=== PATIENT | female | born 2000 | race Two or more races ===

== ENCOUNTER 2023-05-23 19:44 | Emergency (ER) | payer MEDICAID, SELFPAY ==
[2023-05-23 19:47] VITALS: BP 127/81; PULSE 69; RESP 18; TEMP 36.8; O2SAT 100; BMI 29.2
--- NOTE | 2023-05-23 20:05 | EX.ED.GENINJ ---
HPI History of Present Illness Chief Complaint: Other, Pain/Inj PFSH PFSH Allergy/AdvReac Type Severity Reaction Status Date / Time No Known Allergies Allergy Verified 05/23/23 19:50 Social History Smoking Status: Never smoker EXAM Physical Exam Const Vital Signs: 05/23/23 19:47 05/23/23 19:55 Temperature 98.3 F Temperature Source Temporal Pulse Rate 69 Respiratory Rate 18 Respiratory Effort Normal Short of Breath Respiratory Pattern Normal Blood Pressure 127/81 H Blood Pressure Mean 96 Pulse Ox 100 Oxygen Delivery Method Room Air [facility] [place] Medical decision making narrative: HISTORY OF PRESENT ILLNESS: 23-year-old female here with concern for left rib pain. States she sneezed several weeks ago and immediate Pain in her left rib region. She notes swelling as well. She further states 2 weeks ago she moved to right upper extremity such a way that cause pain to her right lateral rib margin present and the pains been intermittent but worsening now it is worse with movement, sometimes with with a deep breath. She denies any chest pain. The patient denies recent surgery in the last 4 weeks or immobilization in the last 3 days, denies previous diagnosis of DVT or PE, hemoptysis, unilateral leg swelling or malignancy with treatment the last 6 months or palliative. No estrogen use noted. REVIEW OF SYSTEMS: Pertinent positives: Rib pain Pertinent negatives: Chest pain, shortness of breath PHYSICAL EXAM: Nursing triage notes reviewed, Vital signs reviewed Constitutional: please see [facility] HENT: MMM Eyes: Pupils equal round and reactive to light, Extraocular muscles intact Neck: No stridor, no JVD, full neck ROM Lungs: Clear to auscultation, No wheezing or rales. No increased work of breathing, no conversational dyspnea, no accessory muscle use, no nasal flaring. No respiratory distress noted. TTP over right latissimus dorsi muscle. No crepitus or flail chest noted. Heart: Regular rate and rhythm, No murmurs, No rubs and No gallops, 2+ distal pulses (radial, femoral, posterior tibial) in all extremities Abdomen: Soft, there is no tenderness, rigidity, rebound or guarding, no obvious peritoneal signs, no palpable pulsatile abdominal masses, no auscultated abdominal bruit : No CVAT Extremities: No edema, no calf tenderness, no stigmata of VTE. Neuro: No focal neurological deficits, cranial nerves II through XII intact, 5/5 strength in all extremities. Intact sensation to light touch in all extremities, 2+ reflexes bilateral patella tendons. Normal gait. No ataxia. Skin: No rash or lesions noted MEDICAL DECISION MAKING: Chief Complaint: Rib pain External records reviewed: No recent advanced imaging of the chest noted in the chart Factors affecting care: none Social determinants of health: none History obtained from others: n the patient significant other Consults: none MDM Narrative: Patient was hemodynamically stable, afebrile. Exam with TTP over right latissimus dorsi muscle. I considered the following differential diagnosis: Musculoskeletal chest injury, rib contusion, costochondritis ALL IMAGES (IF OBTAINED) HAVE BEEN PERSONALLY REVIEWED AND INTERPRETED BY MYSELF. X-ray of the ribs and chest was read and reviewed personally myself and showed no evidence of acute fracture or dislocation pneumonia. The synthesis of the patient's labs, images, history, physical exam suggest no life-limiting etiology I considered pulmonary embolism however thought this was less likely given lack of the chest pain, mopped assist, low risk Wells score lack of vital sign abnormalities. I suspect the patient suffered from a musculoskeletal injury. She was recommended to take Tylenol, ibuprofen and follow with her primary care physician for further outpatient evaluation. The patient and/or family, caregivers express understanding. The patient and/or family, caregivers agrees with the plan. Shared decision making: I will have a discussion with the patient and or visitors regarding risk/benefits of further testing or admission. They will be made aware of of the risk/benefits inherent in this decision they will be given the opportunity to voice understanding. Total critical care time today provided was at least 0 minutes. This excludes separately billable procedures. Critical care time (if documented) is secondary to the patient having high probability of clinically significant/life threatening deterioration in the patient's condition which required my urgent intervention. Impression: 1. Right-sided rib pain 2. Latissimus dorsi muscle strain Dispo: Discharge home Radiography Diagnostic Testing: Clinical Impression(s) from Imaging Studies Ribs w/Chest X-Ray 05/23/23 20:31 IMPRESSION: Negative chest and right ribs series. Electronically Signed: Erik Skinner MD at 21:14 EST , Discharge Plan Triage Chief Complaint: Other, Pain/Inj ED Provider: Chaim Chiu/Rx/DC Orders Instructions: ED Back Sprain/Strain Primary Care Provider: STEVE ARIZA Referrals: Silva Schmitz MD [Med Staff - Keg Raiser] - Activity Restrictions/Additional Instructions: Thank you for trusting us with your care today! Please take Tylenol (2 pills, 650 mg), ibuprofen (2 pills, 400 mg) every 6 hours as needed for pain and fever control. Please return to the emergency department if your symptoms change or worsen. Please follow with your primary care physician for further outpatient evaluation and management. Disposition Disposition: Home, Self Care
--- NOTE | 2023-05-23 20:31 | RAD_ITS ---
EXAM: XR RIGHT RIBS AND AP CHEST, 3 OR MORE VIEWS CLINICAL INDICATION: Right-sided rib pain TECHNIQUE: Frontal and oblique views of the right ribs and frontal view of the chest. COMPARISON: No relevant prior studies available. FINDINGS: LUNGS AND PLEURAL SPACES: Unremarkable. No consolidation or edema. No pneumothorax. No effusion. HEART: Unremarkable. Cardiac silhouette not enlarged. MEDIASTINUM: Central airways and mediastinal contour are unremarkable. BONES/JOINTS: Unremarkable. No evidence of displaced rib fractures. RAD/Ribs Uni Min 3V w/PA Chest IMPRESSION: Negative chest and right ribs series. Electronically Signed: Erik Skinner MD at 21:14 EST ,
== END 2023-05-23 21:57 | disposition home or self-care (01) ==
PROVIDERS: Emergency Provider Emergency Medicine; Visit Provider Emergency Medicine
DX: R07.81 Pleurodynia (principal); S29.019A Strain of muscle and tendon of unspecified wall of thorax, initial encounter; X58.XXXA Exposure to other specified factors, initial encounter
CPT/HCPCS: 71101; 99282

== ENCOUNTER 2023-10-02 12:48 | Emergency (ER) | payer MEDICAID, SELFPAY ==
[2023-10-02 12:49] VITALS: BP 161/90; PULSE 75; RESP 16; TEMP 35.9; O2SAT 98; BMI 30.3
--- NOTE | 2023-10-02 13:39 | US_ITS ---
STUDY: ULTRASOUND OF THE FEMALE PELVIS - COMPLETE REASON FOR EXAM: Female, 23 years old. PELVIC PAIN, HX of PCOS, rule out torsion LMP: September 08, 2023. TECHNIQUE: Transabdominal and Transvaginal TECHNICAL QUALITY: Adequate. COMPARISON: None. FINDINGS: The uterus is retroverted and is in a midline position. The uterus measures 6.3 cm x 4.7 cm x 3.4 cm. Normal uterine cervix. The endometrium measures 4.1 mm in thickness, and is hyperechoic. There is no demonstrated endometrial mass. There is no demonstrated myometrial mass. I.U.D. - The patient does not have an I.U.D. The right ovary is visualized. The right ovary measures 2.2 cm x 2.3 cm x 1.3 cm. Multiple small follicles are seen. There is no visualized right adnexal mass or complex lesion. There is normal arterial and normal venous vascularity. The left ovary is visualized. The left ovary measures 3.5 cm x 4.2 cm x 3.3 cm. There is a 3.4 cm x 3.1 cm x 2.8 cm simple cyst in the left ovary. There is no visualized left adnexal mass or complex lesion. There is normal arterial and normal venous vascularity. There is no fluid in the cul-de-sac. US/Transvaginal Non- IMPRESSION: Multiple small follicles are seen in the right orbit. There is a simple cyst in the left ovary measuring 3.4 cm x 3.1 cm by 2.8 cm. There is normal blood flow within both ovaries. Electronically Signed: Anthony Bassett MD at 15:22 EDT ,
[2023-10-02 13:53] LABS: Bacteria 0 SEEN /hpf (None Seen); Mucous, Urine 0 SEEN /hpf (<or=2+); Red Blood Cells-Urine 0 SEEN /hpf (0-5); White Blood Cells 0 SEEN /hpf (0-5)
[2023-10-02 13:59] LABS: Color, Urine Yellow (Yellow); Glucose, Dipstick Normal (Normal); Ketone-Dipstick Negative (Negative); Leukocyte Esterase-Dipstick Negative /ul (Negative); Nitrite-Dipstick Negative (Negative); Occult Blood-Urine 25 /ul (Negative); Protein-Dipstick Negative (Negative); Urine Bilirubin Dipstick Negative (Negative); Urine Clarity Clear (Clear); Urine Urobilinogen Normal (Normal)
[2023-10-02 14:05] LABS: Internal QC Validated? YES +Cl - CLEAR BKGD; Pregnancy, Urine Negative Negative; Squamous Epithelial Cells - UA 0-5 SEEN /hpf (5-10)
[2023-10-02 14:48] VITALS: BP 127/66; PULSE 64; RESP 14; TEMP 37.1; O2SAT 99
--- NOTE | 2023-10-02 16:22 | EDS_ITS ---
HPI History of Present Illness Chief Complaint: Abd Pain Narrative Narrative: Patient is a 23-year-old female who is presenting to the ER today with chief complaint of lower bilateral pelvic pain that started around 2 AM this morning. Patient has a history of PCOS. Patient states she is due for her menses next week, a few days ago she had a day of spotting, but has not started this months menses yet. Patient states she is not . Patient's boyfriend is at bedside. She has no urinary frequency, urgency or burning. Does not feel lightheaded or dizzy. No other abdominal pain. Patient states she has an appointment with her SALES SUPERINTENDENT in 2 weeks. Patient called the [facility] [facility] office this morning and she cannot be seen any sooner, so she came into the ER. Patient has no new vaginal bleeding, no discharge, no followers, no itching, no other acute complaints. Patient has a history of Crohn's as well. Patient does not believe she is having any type of diarrhea, constipation, or any other Crohn's symptoms at this time. PFSH PFSH Allergy/AdvReac Type Severity Reaction Status Date / Time No Known Allergies Allergy Verified 05/23/23 19:50 Social History Smoking Status: Never smoker ROS ROS ED ROS Narrative REVIEW OF SYSTEMS: Unless otherwise stated in this report the patient's positive and negative responses for review of systems for constitutional, eyes, ENT, cardiovascular, respiratory, gastrointestinal, neurological, , musculoskeletal, and integument systems and related systems to the presenting problem are either stated in the history of present illness or were not pertinent or were negative for the symptoms and/or complaints related to the presenting medical problem. EXAM Physical Exam Narrative Exam Narrative: Vital signs reviewed and patient is not hypoxic. General: The patient appears well and in no apparent distress. Patient is resting very comfortably on cart. Not toxic, lethargic, or listless. Skin: Warm, dry, no pallor noted. There is no rash noted. Head: Normocephalic, atraumatic Eye: Normal conjunctiva, no drainage, EOMI. PERRL. Ears, Nose, Mouth, and Throat: oral mucosa is moist. Nares patent. Mouth without vesicles. Cardiovascular: Regular Rate and Rhythm, no murmurs, gallops, or rubs Respiratory: Patient is in no distress, no accessory muscle use, lungs are clear to auscultation, no wheezing, rales or rhonchi Back: non-tender, no CVA tenderness bilaterally to percussion. NO CTLS midline or paraspinal tenderness to palpation. GI: Soft, no tenderness to palpation, no masses appreciated. No rebound, guarding, or rigidity noted. Patient has bilateral lower pelvic tenderness palpation, left greater than right. Patient has no peritoneal signs, no flank pain bilateral. Abdomen is soft. Patient has mild suprapubic tenderness palpation. No acute indication for pelvic exam at this time, patient agrees. Musculoskeletal: The patient has full range of motion of all extremities and joints with no difficulty. Patient has no motor, no sensory deficits. Neurological: A&O x4, normal speech, no focal neurological deficits. Psychiatric: Cooperative Const Vital Signs: 10/02/23 12:49 10/02/23 14:48 Temperature 96.6 F L 98.7 F Temperature Source Temporal Pulse Rate 75 64 Respiratory Rate 16 14 Blood Pressure 161/90 H 127/66 H Blood Pressure Mean 113 86 Pulse Ox 98 99 Oxygen Delivery Method Room Air MDM MDM MDM Narrative Medical decision making narrative: Patient ultrasound shows no acute findings. Patient has a history of PCOS. Patient has cyst bilateral, no acute signs of ovarian torsion. No other acute abnormalities. No significant large ovarian cyst, abscess, or tubo-ovarian abscess. Patient was educated and continue take Tylenol. Patient will follow- up with SALES SUPERINTENDENT in 2 weeks as scheduled. Patient's urine showed no other acute findings, was negative. No question of discharge Lab Data Labs: Laboratory Results - last 24 hr 10/02/23 13:52 Urine Color Yellow Urine Clarity Clear Urine pH 8.0 Ur Specific [place] 1.010 Urine Protein Negative Urine Glucose (UA) Normal Urine Ketones Negative Urine Occult Blood 25 H Urine Nitrite Negative Urine Bilirubin Negative Urine Urobilinogen Normal Ur Leukocyte Esterase Negative Urine RBC 0 SEEN Urine WBC 0 SEEN Ur Squamous Epith Cells 0-5 SEEN Urine Bacteria 0 SEEN Urine Mucus 0 SEEN Urine Test Negative Radiography Diagnostic Testing: Clinical Impression(s) from Imaging Studies Transvaginal US 10/02/23 13:39 IMPRESSION: Multiple small follicles are seen in the right orbit. There is a simple cyst in the left ovary measuring 3.4 cm x 3.1 cm by 2.8 cm. There is normal blood flow within both ovaries. Electronically Signed: Anthony Bassett MD at 15:22 EDT , Discharge Plan Triage Chief Complaint: Abd Pain ED Provider: Durga Bartholomew Dx/Rx/DC Orders Clinical Impression: Ovarian cyst, Pelvic pain Instructions: ED Ovarian Cyst, ED Pelvic Pain, Unknown Cause Primary Care Provider: Sterling Beebe Referrals: Sterling Beebe MD [Primary Care Provider] - Activity Restrictions/Additional Instructions: Continue to follow-up with your SALES SUPERINTENDENT for your scheduled appointment. Continue using Tylenol as needed for pain, max Tylenol dose is 3000 mg a day. A copy of your ultrasound report has been given to you. Urine shows no acute findings. You have no evidence of ovarian torsion. Disposition Disposition: Home, Self Care Discharge Date/Time: 10/02/23 16:01
== END 2023-10-02 16:01 | disposition home or self-care (01) ==
PROVIDERS: Emergency Provider Emergency Medicine; PCP Family Medicine; Visit Provider Emergency Medicine
DX: N83.202 Unspecified ovarian cyst, left side (principal); R10.2 Pelvic and perineal pain
CPT/HCPCS: 76830; 81001; 81025; 93976; 99282

== ENCOUNTER 2023-12-16 19:21 | Emergency (ER) | payer MEDICAID, SELFPAY ==
[2023-12-16 19:22] VITALS: BP 141/79; PULSE 104; RESP 18; TEMP 37.1; O2SAT 96; BMI 28.8
[2023-12-16 20:20] VITALS: BP 131/71; PULSE 80; RESP 18; TEMP 36.9; O2SAT 100
--- NOTE | 2023-12-16 21:00 | EX.ED.DYSGE1 ---
HPI <LYNN Rodgers - Last Filed: 12/16/23 22:15> History of Present Illness Chief Complaint: Fever Narrative Narrative: Patient presenting due to intermittent subjective fevers she has had since . She reports that she did have 1 episode of vomiting today. She has a history of Crohn's disease and has been in an active flare over the past few weeks, she does follow with [facility], she takes Inflectra for her Crohn's disease. She did have a colonoscopy on 12/11/2023. She has had a perianal fistula over the past few weeks that has been draining purulent discharge, this was seen on her colonoscopy, she was told to follow-up with her colorectal surgeon but has been unable to make an appointment with them. The discharge is not worsening. She denies any rectal bleeding. She reports that she has also had a dry cough with throat irritation over the past few days. She denies shortness of breath, chest pain, and abdominal pain. PFSH <LYNN Rodgers Last Filed: 12/16/23 22:15> [facility] Home Medications ?Medication ?Instructions ?Recorded ?Last Taken ?Type amoxicillin 875 mg-potassium 875 mg PO Q12H #14 TABLETS 12/17/23 Unknown Rx clavulanate 125 mg tablet Allergy/AdvReac Type Severity Reaction Status Date / Time No Known Allergies Allergy Verified 12/16/23 19:21 Social History Smoking Status: Never smoker ROS <LYNN Rodgers - Last Filed: 12/16/23 22:15> ROS ED Constitutional Constitutional ED: Reports fever(s) and subjective Cardiovascular Cardiovascular: Denies chest pain Respiratory/Chest Respiratory/Chest: Denies cough or dyspnea Gastrointestinal Gastrointestinal: Reports diarrhea, nausea and vomiting; Denies abdominal pain, melena or rectal bleeding Genitourinary Genitourinary ED: Denies dysuria or urinary urgency Musculoskeletal Musculoskeletal: Denies arthralgias or myalgias Integumentary Denies rash Neurologic Neurologic: Denies weakness EXAM <LYNN Rodgers - Last Filed: 12/16/23 22:15> Physical Exam Const Vital Signs: 12/16/23 19:22 12/16/23 20:15 12/16/23 20:20 Temperature 98.8 F 98.5 F Temperature Source Temporal Oral Pulse Rate 104 H 80 Respiratory Rate 18 18 Respiratory Effort Normal Non-Labored Respiratory Pattern Normal Blood Pressure 141/79 H 131/71 H Blood Pressure Mean 99 91 Pulse Ox 96 100 Oxygen Delivery Method Room Air Room Air 12/16/23 21:02 12/16/23 22:00 12/16/23 23:00 Temperature 98.5 F 98.2 F 97.8 F Temperature Source Oral Oral Oral Pulse Rate 80 79 58 L Respiratory Rate 18 18 16 Respiratory Effort Respiratory Pattern Blood Pressure 128/73 H 127/74 H 111/57 L Blood Pressure Mean 91 91 75 Pulse Ox 100 100 100 Oxygen Delivery Method Room Air Room Air Room Air 12/17/23 00:00 Temperature 98.0 F Temperature Source Oral Pulse Rate 62 Respiratory Rate 16 Respiratory Effort Respiratory Pattern Blood Pressure 118/62 Blood Pressure Mean 80 Pulse Ox 100 Oxygen Delivery Method Room Air Positive well nourished, well developed and no apparent distress General Appearance ED: well developed HEENT Reports normocephalic and head/scalp atraumatic Mouth ED: Yes moist mucous membranes normal Eyes PERRL and EOMs intact bilaterally Neck full ROM and supple Chest Wall inspection of chest normal Resp normal respiratory effort and clear to auscultation bilaterally Cardio regular rate and regular rhythm GI soft to palpation, non-tender, non-distended and no masses Back/Spine normal ROM and normal to inspection Extremity normal to inspection and full ROM Neuro oriented x3, CN's II-XII intact bilaterally, moves all extremities, no focal motor deficits and no sensory deficits noted Sensorium / Orientation: awake and alert Psych mental status grossly normal and thought process normal Skin no rashes or lesions noted and no wounds <Dr. Arnold Roman, DO - Last Filed: 12/17/23 00:46> Physical Exam Const Vital Signs: 12/16/23 19:22 12/16/23 20:15 12/16/23 20:20 Temperature 98.8 F 98.5 F Temperature Source Temporal Oral Pulse Rate 104 H 80 Respiratory Rate 18 18 Respiratory Effort Normal Non-Labored Respiratory Pattern Normal Blood Pressure 141/79 H 131/71 H Blood Pressure Mean 99 91 Pulse Ox 96 100 Oxygen Delivery Method Room Air Room Air 12/16/23 21:02 12/16/23 22:00 12/16/23 23:00 Temperature 98.5 F 98.2 F 97.8 F Temperature Source Oral Oral Oral Pulse Rate 80 79 58 L Respiratory Rate 18 18 16 Respiratory Effort Respiratory Pattern Blood Pressure 128/73 H 127/74 H 111/57 L Blood Pressure Mean 91 91 75 Pulse Ox 100 100 100 Oxygen Delivery Method Room Air Room Air Room Air 12/17/23 00:00 Temperature 98.0 F Temperature Source Oral Pulse Rate 62 Respiratory Rate 16 Respiratory Effort Respiratory Pattern Blood Pressure 118/62 Blood Pressure Mean 80 Pulse Ox 100 Oxygen Delivery Method Room Air [facility] <LYNN Rodgers - Last Filed: 12/16/23 22:15> [facility] Narrative Medical decision making narrative: Patient presenting due to subjective fevers that started on , she had an episode of vomiting today. History of Crohn's disease with chronic diarrhea. I did review her colonoscopy reports on [facility], there was an perianal fistula with active purulent discharge seen close to the dentate line. Labs obtained, she has a WBC of 13.5, given this CT scan of the abdomen and pelvis will be obtained. Workup is pending. [facility] Lab Data Attestation: I reviewed the patient's lab results. Lab results narrative: WBC 13.5, sodium 135, hemoglobin 11.4 Labs: Laboratory Results - last 24 hr 12/16/23 12/16/23 21:04 22:00 WBC 13.5 H RBC 4.28 Hgb 11.4 L Hct 35.6 L MCV 83.2 MCH 26.6 L MCHC 32.0 RDW Std Deviation 36.9 RDW Coeff of Moy 12.1 Plt Count 268 MPV 9.6 Immature Gran % (Auto) 0.400 Neut % (Auto) 74.9 H Lymph % (Auto) 16.0 L [place] % (Auto) 7.3 Eos % (Auto) 1.0 Baso % (Auto) 0.4 Absolute Neuts (auto) 10.1 H Absolute Lymphs (auto) 2.15 Nucleated RBC % 0 Differential Comment SCANNED Sodium 135 L Potassium 4.3 Chloride 105 Carbon Dioxide 23.0 Anion Gap 7 BUN 6 L Creatinine 0.75 Estim Creat Clear Calc 127.48 Est GFR (MDRD) Af Amer 125 Est GFR (MDRD) Non-Af 103 BUN/Creatinine Ratio 8.0 L Glucose 89 Calcium 8.8 Serum , Qual NEGATIVE Radiography Diagnostic Testing: Clinical Impression(s) from Imaging Studies Abdomen/Pelvis CT 12/16/23 21:33 IMPRESSION: There is mild wall thickening in the distal ileum suggesting inflammatory bowel disease or gastroenteritis . Electronically Signed: Kyler Becker MD at 23:57 EDT , <Dr. Arnold Roman, DO - Last Filed: 12/17/23 00:46> [facility] Narrative Medical decision making narrative: Patient presenting due to subjective fevers that started on , she had an episode of vomiting today. History of Crohn's disease with chronic diarrhea. I did review her colonoscopy reports on clin[facility], there was an perianal fistula with active purulent discharge seen close to the dentate line. Labs obtained, she has a WBC of 13.5, given this CT scan of the abdomen and pelvis will be obtained. Workup is pending. Her colorectal surgeon is Dr. Barton with [facility]. I have personally performed a face to face assessment of the patient and have reviewed the RADHA Note. I performed a substantive portion of the visit including all aspects of the following. My hart findings include: History is 23-year-old female history of Crohn's disease receiving infusion therapy with GI and colorectal surgery at [facility]. Patient had a colonoscopy reported to have a perianal fistula with discharge and was advised to follow-up with her surgeon. She is not currently on antibiotics. She notes some subjective fevers beginning at the end of last week and an episode of vomiting today. She states the fistula does not typically drain but has been doing more so. Exam is abdomen nonsurgical. Normal active bowel sounds. Mild tenderness please see PA exam for exam. Medical Decison Making white count 13.5 74.9 neutrophils. test is negative. CT abdomen pelvis does not show a perirectal perianal abscess. Using shared decision making I sat down and reviewed the case with the patient. It is actively draining and with no abscess formation at this time. We talked about risk benefits of antibiotics such as ciprofloxacin metronidazole and Augmentin. We will use Augmentin at the current time. She is to call her colorectal surgeon tomorrow. She notes understanding of the plan is comfortable with it. She states that she does not require any pain medication at this time. History & Record Review Discussion w/independent historian: Patient Lab Data Labs: Laboratory Results - last 24 hr 12/16/23 12/16/23 21:04 22:00 WBC 13.5 H RBC 4.28 Hgb 11.4 L Hct 35.6 L MCV 83.2 MCH 26.6 L MCHC 32.0 RDW Std Deviation 36.9 RDW Coeff of [place]oy 12.1 Plt Count 268 MPV 9.6 Immature Gran % (Auto) 0.400 Neut % (Auto) 74.9 H Lymph % (Auto) 16.0 L [place] % (Auto) 7.3 Eos % (Auto) 1.0 Baso % (Auto) 0.4 Absolute Neuts (auto) 10.1 H Absolute Lymphs (auto) 2.15 Nucleated RBC % 0 Differential Comment SCANNED Sodium 135 L Potassium 4.3 Chloride 105 Carbon Dioxide 23.0 Anion Gap 7 BUN 6 L Creatinine 0.75 Estim Creat Clear Calc 127.48 Est GFR (MDRD) Af Amer 125 Est GFR (MDRD) Non-Af 103 BUN/Creatinine Ratio 8.0 L Glucose 89 Calcium 8.8 Serum , Qual NEGATIVE Radiography Diagnostic Testing: Clinical Impression(s) from Imaging Studies Abdomen/Pelvis CT 12/16/23 21:33 IMPRESSION: There is mild wall thickening in the distal ileum suggesting inflammatory bowel disease or gastroenteritis . Electronically Signed: Kyler Becker MD at 23:57 EDT Reading Location ID and State: [address] [place] [address] Tel , Service support , Discharge Plan Triage Chief Complaint: Fever ED Midlevel Provider: Maia Luis ED Provider: Arnold Roman Dx/Rx/DC Orders Clinical Impression: Acute Crohn's disease, Perirectal fistula Instructions: Crohns Disease Dc Prescriptions: New amoxicillin-pot clavulanate 875-125 mg tablet 875 mg PO Q12H Qty: 14 0RF Primary Care Provider: Sterling Beebe Referrals: Sterling Beebe MD [Primary Care Provider] - Activity Restrictions/Additional Instructions: Please follow-up with your colorectal surgeon. Print Language: Chinese Disposition Disposition: Home, Self Care
[2023-12-16] MEDS: Ondansetron 4 MG/2 ML Vial IV (21:01)
[2023-12-16] MEDS: 0.9% Normal Saline (1000mL) 1,000 ML 999 ML IV (21:01)
[2023-12-16 21:02] VITALS: BP 128/73; PULSE 80; RESP 18; TEMP 36.9; O2SAT 100
[2023-12-16 21:22] LABS: Absolute Lymphocyte Count 2.15 X10^3/uL (0.83-4.51); Absolute Neutrophil Count 10.1 X10^3/uL (2.0-7.7); Basophil# 0.05 X10^3/uL; Basophil% 0.4 % (0-1); Eosinophil# 0.14 X10^3/uL; Hematocrit 35.6 % (37-47); Hemoglobin 11.4 g/dL (12.0-15.0); Lymphocyte # 2.15 X10^3/ul (0.83-4.51); Mean Corpuscular Hgb 26.6 pg (27.0-32.0); Mean Corpuscular Volume 83.2 fL (81-99); Mean Platelet Vol. 9.6 fl (6.2-12.0); Monocyte# 0.98 X10^3/uL; Monocyte% 7.3 % (0-10); NRBC Flagged by Analyzer 0 % (0-5); Neutrophil # 10.08 X10^3/uL (2.7-7.7); Neutrophil % 74.9 % (47-70); POSITIVE COUNT YES; Platelet Count 268 K/mm3 (150-450); RBC Distribution Width CV 12.1 % (11.6-14.6); RBC Distribution Width SD 36.9 fl (35.1-43.9); Red Blood Count 4.28 M/mm3 (4.2-5.4); White Blood Count 13.5 K/mm3 (4.4-11.0)
[2023-12-16 21:23] LABS: Differential Indicated SCAN CRITERIA MET
[2023-12-16 21:33] LABS: Anion Gap 7 (5-15); BUN 6 mg/dL (7-18); Calcium,Total 8.8 mg/dL (8.5-10.1); Chloride 105 mmol/L (98-107); Creatinine, Serum 0.75 mg/dL (0.55-1.02); EST Glomerular Filtration Rate 103 mL/min (>60); Est Glom Filt Rate - Afr Amer 125 mL/min (>60); Estimated Creatinine Clearance 127.48 ml/min; Glucose 89 mg/dL (74-106); Potassium 4.3 mmol/L (3.5-5.1); Sodium Level 135 mmol/L (136-145)
--- NOTE | 2023-12-16 21:33 | CT_ITS ---
STUDY: CT ABDOMEN AND PELVIS WITH CONTRAST - URINARY TRACT REASON FOR EXAM: Female, 23 years old. rectal fistula pain and drainage RADIATION DOSAGE (If Supplied By Facility): CTDIvol = ( 15.96 ) mGy, DLP = ( 860.80 ) mGycm TECHNIQUE: IV 100mL Isovue-370 was administered. Transaxial images were obtained from the dome of the diaphragm to the symphysis pubis in the arterial, nephrographic and excretory phases. Multiplanar coronal and sagittal images were reformatted. The protocol utilizes one or more of the following dose reduction techniques: automated exposure control, adjustment of mA and/or kV according to patient size,and/or use of iterative reconstruction technique. COMPARISON: No relevant prior comparison study available FINDINGS: The visualized lung bases are unremarkable. The visualized portions of the heart are within normal limits. Normal liver. Normal gallbladder and extrahepatic biliary system. Normal spleen. Normal pancreas. Normal bilateral adrenal glands. Normal visualized stomach. There is mild wall thickening in the distal ileum suggesting inflammatory bowel disease or gastroenteritis . The appendix is visualized and appears normal. Normal abdominal aorta. No retroperitoneal adenopathy. Normal right kidney. Normal left kidney. Normal urinary bladder. There is a left ovarian cyst measures 4.2 cm. Normal uterus and right ovary Normal abdominal wall. Normal osseous structures. CT/Abdomen/Pelvis W IV Cont ONLY IMPRESSION: There is mild wall thickening in the distal ileum suggesting inflammatory bowel disease or gastroenteritis . Electronically Signed: Kyler Becker MD at 23:57 EDT ,
[2023-12-16 21:48] LABS: Differential Comment SCANNED
[2023-12-16 22:00] VITALS: BP 127/74; PULSE 79; RESP 18; TEMP 36.8; O2SAT 100
[2023-12-16 22:52] LABS: Internal QC Validated? YES +Cl - CLEAR BKGD; Pregnancy, Serum, hCG Quali. NEGATIVE Negative
[2023-12-16 23:00] VITALS: BP 111/57; PULSE 58; RESP 16; TEMP 36.6; O2SAT 100
[2023-12-17] VITALS: BP 118/62; PULSE 62; RESP 16; TEMP 36.7; O2SAT 100
[2023-12-17] MEDS: Amox/Clavulanate 875 MG Tablet PO (00:44)
[2023-12-17 00:48] VITALS: BP 112/79; PULSE 69; RESP 18; TEMP 36.6; O2SAT 100
== END 2023-12-17 00:51 | disposition home or self-care (01) ==
PROVIDERS: Physician Assistant; Emergency Provider Emergency Medicine; PCP Family Medicine; Visit Provider Emergency Medicine
DX: K50.90 Crohn's disease, unspecified, without complications (principal); K60.4 Rectal fistula
CPT/HCPCS: 74177; 80048; 84703; 85025; 96361; 96374; 99282; J7030; Q9967; A4216; J2405

== ENCOUNTER 2024-08-03 16:40 | Emergency (ER) | payer OTHER, SELFPAY ==
--- NOTE | 2024-08-03 15:59 | RAD_ITS ---
PROCEDURE: CHEST PA AND LATERAL REASON FOR EXAM: Recent flu. Patient not improving. Fever of 104 degrees. TECHNIQUE: Frontal and lateral chest including upper abdomen. COMPARISON: 05/23/2023. FINDINGS: Lungs are clear of pneumonia and congestion. No pleural effusions, thickening, or pneumothorax. Heart and mediastinum are normal. Great vessels unremarkable. No hilar masses. Bones and soft tissues are unremarkable. Cardiac monitoring leads overlie the chest wall. RAD/Chest PA and Lateral IMPRESSION: UNREMARKABLE SINGLE VIEW OF THE CHEST AND ABDOMEN. Reading Location: [facility]
[2024-08-03 16:40] VITALS: BP 117/77; PULSE 145; RESP 22; TEMP 37.7; O2SAT 100; BMI 27.4
--- NOTE | 2024-08-03 17:32 | EDS_ITS ---
HPI <ELIZABETH Weems - Last Filed: 08/03/24 19:17> History of Present Illness Chief Complaint: Fever Narrative Narrative: Patient is a 24-year-old female with no significant medical history presents to the [facility] apartment for worsening fever, chills, body aches. Patient was diagnosed with influenza 5 days ago. Patient states she has had bouts of nausea and vomiting, is continued having fevers greater than 103. 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 Patient states that she just feels awful, and is here for reevaluation. [facility] <ELIZABETH Weems - Last Filed: 08/03/24 19:17> [facility] Home Medications ?Medication ?Instructions ?Recorded ?Last Taken ?Type amoxicillin 875 mg-potassium 875 mg PO Q12H #14 TABLET S 12/17/23 Unknown Rx clavulanate 125 mg tablet ondansetron 4 mg disintegrating 4 mg PO Q8H PRN PRN Na usea #10 tabs 08/03/24 Unknown Rx tablet potassium chloride 20 mEq 20 meq PO BID 7 days #14 tab s 08/03/24 Unknown Rx tablet,extended release Allergy/AdvReac Type Severity Reaction Status Date / Time No Known Allergies Allergy Verified 12/16/23 19:21 Social History Smoking Status: Never smoker ROS <ELIZABETH Weems - Last Filed: 08/03/24 19:17> ROS ED ROS Narrative Constitutional: Negative for weight loss. Positive fever, chills, weakness Eyes: Negative for vision loss, vision change, double vision ENT: Negative for any sore throat, ear pain, congestion Cardiovascular: Negative for any chest pain, tightness, palpitations Respiratory: Negative for any sputum production, hemoptysis, dyspnea on exertion, orthopnea. Positive for cough, dyspnea Gastrointestinal: Negative for any abdominal pain, nausea, vomiting, diarrhea, constipation, blood in stool, blood in vomit : Negative for any urinary frequency, dysuria, retention, blood in urine Muscle skeletal: Negative for any neck pain, back pain. Positive for myalgias Neurological: Negative for any syncope, dizziness. Positive for headache Skin: Negative for any rashes, itching, abrasions, lacerations Psychiatric: Negative for any depression, anxiety, stress, suicidal ideation, homicidal ideation Hematologic: Negative for any excessive bruising, easy bleeding EXAM <Brian HunterELIZABETH dorsey - Last Filed: 08/03/24 19:17> Physical Exam Narrative Exam Narrative: Vital signs reviewed. Patient was tachycardic, did look like she not feel good. HEET: Head normocephalic atraumatic, TMs clear bilaterally. Posterior pharynx is clear, moist mucous membranes. Nares clear bilaterally. Neck: Supple with no lymphadenopathy or tenderness. No signs of meningismus. Cardiac: Tachycardic rhythm no murmurs gallops or rubs, equal peripheral pulses bilaterally. Respiratory: Lungs clear to auscultation bilaterally. No chest tenderness. Abdomen: Soft, nontender, nondistended. No abdominal bruit or pulsatile masses. No hepatosplenomegaly Extremities: No peripheral edema, no signs of gross trauma or deformity. Active full range of motion of all extremities. Neuro: Cranial nerves II through XII intact, no focal neurological deficits. Skin: Clean dry and intact with no rash, purpura, petechiae, vesicles or pustules. Skin warm to the touch Backs/flank: No CVA tenderness, no midline spinal tenderness, no deformity. Psych: Normal mood and affect. No SI, HI or acute psychosis. Const Vital Signs: 08/03/24 16:40 08/03/24 17:42 08/03/24 18:00 Temperature 99.8 F H 101.2 F H Temperature Source Oral Oral Pulse Rate 145 H 125 H 114 H Respiratory Rate 22 H 20 H 21 H Blood Pressure 117/77 114/79 Blood Pressure Mean 90 90 Pulse Ox 100 100 97 Oxygen Delivery Method Room Air Room Air Room Air 08/03/24 19:00 08/03/24 19:32 Temperature 98.6 F 98.5 F Temperature Source Oral Pulse Rate 104 H 96 Respiratory Rate 20 H 16 Blood Pressure 114/71 112/65 Blood Pressure Mean 85 80 Pulse Ox 96 98 Oxygen Delivery Method Room Air Positive well nourished and well developed General Appearance ED: well developed <Dr. Kev Interiano DO - Last Filed: 08/04/24 00:50> Physical Exam Const Vital Signs: 08/03/24 16:40 08/03/24 17:42 08/03/24 18:00 Temperature 99.8 F H 101.2 F H Temperature Source Oral Oral Pulse Rate 145 H 125 H 114 H Respiratory Rate 22 H 20 H 21 H Blood Pressure 117/77 114/79 Blood Pressure Mean 90 90 Pulse Ox 100 100 97 Oxygen Delivery Method Room Air Room Air Room Air 08/03/24 19:00 08/03/24 19:32 Temperature 98.6 F 98.5 F Temperature Source Oral Pulse Rate 104 H 96 Respiratory Rate 20 H 16 Blood Pressure 114/71 112/65 Blood Pressure Mean 85 80 Pulse Ox 96 98 Oxygen Delivery Method Room Air MDM <ELIZABETH Weems - Last Filed: 08/03/24 19:17> [facility] Lab Data Labs: Laboratory Results - last 24 hr 08/03/24 08/03/24 17:36 19:01 WBC 9.4 RBC 4.43 Hgb 11.7 L Hct 34.1 L MCV 77.0 L MCH 26.4 L MCHC 34.3 RDW Std Deviation 37.7 RDW Coeff of Moy 13.5 Plt Count 242 MPV 11.3 Immature Gran % (Auto) 1.100 H Neut % (Auto) 79.3 H Lymph % (Auto) 11.1 L [place] % (Auto) 8.0 Eos % (Auto) 0.3 Baso % (Auto) 0.2 Absolute Neuts (auto) 7.5 Absolute Lymphs (auto) 1.05 Nucleated RBC % 0 Sodium 133 L Potassium 2.7 L* Chloride 96 L Carbon Dioxide 28.0 Anion Gap 9 BUN 10 Creatinine 0.88 Estim Creat Clear Calc 105.15 Est GFR (MDRD) Af Amer 103 Est GFR (MDRD) Non-Af 85 BUN/Creatinine Ratio 11.4 Glucose 115 H Calcium 8.2 L Total Bilirubin 3.30 H AST 88 H ALT 93 H Alkaline Phosphatase 328 H Total Protein 7.0 Albumin 2.4 L Globulin 4.6 H Albumin/Globulin Ratio 0.5 L Urine Color Yellow Urine Clarity Clear Urine pH 6.0 Ur Specific [place] 1.010 Urine Protein 30 H Urine Glucose (UA) Normal Urine Ketones Negative Urine Occult Blood 250 H Urine Nitrite Negative Urine Bilirubin 3 H Urine Urobilinogen 4 H Ur Leukocyte Esterase 25 H Urine RBC 5-10 SEEN Urine WBC 0-5 SEEN Ur Squamous Epith Cells 0-5 SEEN Ur Transition Epith Cell 0-5 SEEN Urine Bacteria RARE Urine Mucus 1+ Radiography Diagnostic Testing: Clinical Impression(s) from Imaging Studies Chest X-Ray 08/03/24 15:59 IMPRESSION: UNREMARKABLE SINGLE VIEW OF THE CHEST AND ABDOMEN. Reading Location: [facility] Treatment and Re-Evaluation :: Differential diagnosis includes however is not limited to: Sequelae of influenza A, dehydration, community-acquired pneumonia, UTI, dehydration, electrolyte abnormality Patient appears to be in no respiratory distress ever patient complains of fever, body aches, tachycardia. Patient will receive 2 L of normal saline, IV Zofran, Toradol as well as oral Tylenol. Two-view chest x-ray will be ordered. Believe this is just sequelae of influenza A, patient will be treated conservatively. All radiologic examinations were read, reviewed by the emergency department attending. From these reads, a plan of care will be put in place. Patient's laboratory values showed normal CBC, hemoglobin 11.7 which is stable. Patient's chemistries did show a lower potassium of 2.7, this was replaced orally. Patient's glucose within normal limits. Patient's urinalysis shows someone that is more dehydrated. Patient did improve with 2 L IV fluids, Toradol, Tylenol. Patient continue to take Tylenol at home, she will be careful with any NSAID secondary to her colitis history. Patient will be given a week worth of potassium, instructed to advance her diet as tolerated. She was given strict return precautions, all questions answered, stable for discharge. <Dr. Kev Interiano, DO - Last Filed: 08/04/24 00:50> [facility] Lab Data Labs: Laboratory Results - last 24 hr 08/03/24 08/03/24 17:36 19:01 WBC 9.4 RBC 4.43 Hgb 11.7 L Hct 34.1 L MCV 77.0 L MCH 26.4 L MCHC 34.3 RDW Std Deviation 37.7 RDW Coeff of [place] 13.5 Plt Count 242 MPV 11.3 Immature Gran % (Auto) 1.100 H Neut % (Auto) 79.3 H Lymph % (Auto) 11.1 L [place] % (Auto) 8.0 Eos % (Auto) 0.3 Baso % (Auto) 0.2 Absolute Neuts (auto) 7.5 Absolute Lymphs (auto) 1.05 Nucleated RBC % 0 Sodium 133 L Potassium 2.7 L* Chloride 96 L Carbon Dioxide 28.0 Anion Gap 9 BUN 10 Creatinine 0.88 Estim Creat Clear Calc 105.15 Est GFR (MDRD) Af Amer 103 Est GFR (MDRD) Non-Af 85 BUN/Creatinine Ratio 11.4 Glucose 115 H Calcium 8.2 L Total Bilirubin 3.30 H AST 88 H ALT 93 H Alkaline Phosphatase 328 H Total Protein 7.0 Albumin 2.4 L Globulin 4.6 H Albumin/Globulin Ratio 0.5 L Urine Color Yellow Urine Clarity Clear Urine pH 6.0 Ur Specific [place] 1.010 Urine Protein 30 H Urine Glucose (UA) Normal Urine Ketones Negative Urine Occult Blood 250 H Urine Nitrite Negative Urine Bilirubin 3 H Urine Urobilinogen 4 H Ur Leukocyte Esterase 25 H Urine RBC 5-10 SEEN Urine WBC 0-5 SEEN Ur Squamous Epith Cells 0-5 SEEN Ur Transition Epith Cell 0-5 SEEN Urine Bacteria RARE Urine Mucus 1+ Radiography Diagnostic Testing: Clinical Impression(s) from Imaging Studies Chest X-Ray 08/03/24 15:59 IMPRESSION: UNREMARKABLE SINGLE VIEW OF THE CHEST AND ABDOMEN. Reading Location: [facility] Treatment and Re-Evaluation :: Differential diagnosis includes however is not limited to: Sequelae of influenza A, dehydration, community-acquired pneumonia, UTI, dehydration, electrolyte abnormality Patient appears to be in no respiratory distress ever patient complains of fever, body aches, tachycardia. Patient will receive 2 L of normal saline, IV Zofran, Toradol as well as oral Tylenol. Two-view chest x-ray will be ordered. Believe this is just sequelae of influenza A, patient will be treated conservatively. All radiologic examinations were read, reviewed by the emergency department attending. From these reads, a plan of care will be put in place. Patient's laboratory values showed normal CBC, hemoglobin 11.7 which is stable. Patient's chemistries did show a lower potassium of 2.7, this was replaced orally. Patient's glucose within normal limits. Patient's urinalysis shows someone that is more dehydrated. Patient did improve with 2 L IV fluids, Toradol, Tylenol. Patient continue to take Tylenol at home, she will be careful with any NSAID secondary to her colitis history. Patient will be given a week worth of potassium, instructed to advance her diet as tolerated. She was given strict return precautions, all questions answered, stable for discharge. Attending note: I have personally performed a face to face assessment of the patient and have reviewed the [facility] note. I personally made/approved the management plan and take responsibility for the patient management. I performed a substantive portion of the visit including all aspects of the following. My hart findings include: Day 10 of influenza diagnosed 5 days ago. Vomiting. Myalgias. Fever. Exam was tachycardic, nontoxic. Febrile in the ED. Labs were drawn white count 9.7 potassium 2.7 oral replacement given. She was given fluids for her tachycardia with improvement. Treated for her fever. 1 view chest x-ray interpreted by myself and read by radiology shows no acute process. Clinically feeling better. Outside the window for any antiviral medications. Patient will continue symptom treatment at home. Discharge Plan Triage Chief Complaint: Fever ED Midlevel Provider: Brian Harris ED Provider: Kev Interiano Dx/Rx/DC Orders Clinical Impression: Acute dehydration, Acute hypokalemia, History of influenza, Febrile illness Instructions: Hypokalemia Dc, ED Dehydration (Adult) Prescriptions: New potassium chloride 20 mEq tablet extended release 20 meq PO BID 7 Days Qty: 14 0RF ondansetron 4 mg tablet,disintegrating 4 mg PO Q8H PRN PRN (Reason: Nausea) Qty: 10 0RF No Action amoxicillin-pot clavulanate 875-125 mg tablet 875 mg PO Q12H Qty: 14 0RF Stand Alone Forms: ED Work / School Excuse Primary Care Provider: Care Physician,No Primary Referrals: Sterling Beebe MD [Non-Staff] - Activity Restrictions/Additional Instructions: Continue take the Tylenol, maintain hydration. Advance her diet as tolerated. Print Language: Bangladeshi Disposition Disposition: Home, Self Care Discharge Date/Time: 08/03/24 19:33
[2024-08-03 17:42] VITALS: BP 114/79; PULSE 125; RESP 20; TEMP 38.4; O2SAT 100
[2024-08-03] MEDS: 0.9% Normal Saline (1000mL) 1,000 ML 999 ML IV ×2 (17:49)
[2024-08-03] MEDS: Acetaminophen 500 MG Tablet 1000 MG PO (17:49)
[2024-08-03] MEDS: Ketorolac 15 MG/ML Vial IV (17:49)
[2024-08-03] MEDS: Ondansetron 4 MG/2 ML Vial IV (17:49)
[2024-08-03 17:58] LABS: Absolute Lymphocyte Count 1.05 X10^3/uL (0.83-4.51); Absolute Neutrophil Count 7.5 X10^3/uL (2.0-7.7); Basophil# 0.02 X10^3/uL; Basophil% 0.2 % (0-1); Eosinophil# 0.03 X10^3/uL; Eosinophils% 0.3 % (0-5); Hematocrit 34.1 % (37-47); Hemoglobin 11.7 g/dL (12.0-15.0); Lymphocyte # 1.05 X10^3/ul (0.83-4.51); Lymphocyte % 11.1 % (19-41); Mean Corp Hgb Conc 34.3 g/dL (32-36); Mean Corpuscular Hgb 26.4 pg (27.0-32.0); Mean Platelet Vol. 11.3 fl (6.2-12.0); Monocyte# 0.75 X10^3/uL; NRBC Flagged by Analyzer 0 % (0-5); Neutrophil # 7.47 X10^3/uL (2.7-7.7); Neutrophil % 79.3 % (47-70); Platelet Count 242 K/mm3 (150-450); RBC Distribution Width CV 13.5 % (11.6-14.6); RBC Distribution Width SD 37.7 fl (35.1-43.9); Red Blood Count 4.43 M/mm3 (4.2-5.4); White Blood Count 9.4 K/mm3 (4.4-11.0)
[2024-08-03 18:00] VITALS: PULSE 114; RESP 21; O2SAT 97
[2024-08-03 18:21] LABS: ALB/GLOB Ratio 0.5 RATIO (0.9-2.4); AST(SGOT) 88 U/L (15-37); Alanine Aminotransfer ALT/SGPT 93 U/L (13-56); Albumin, Serum 2.4 g/dL (3.2-5.0); Alkaline Phosphatase 328 U/L (45-117); Anion Gap 9 (5-15); BUN 10 mg/dL (7-18); BUN/Creat Ratio 11.4 RATIO (10-20); Calcium,Total 8.2 mg/dL (8.5-10.1); Chloride 96 mmol/L (98-107); Creatinine, Serum 0.88 mg/dL (0.55-1.02); EST Glomerular Filtration Rate 85 mL/min (>60); Est Glom Filt Rate - Afr Amer 103 mL/min (>60); Estimated Creatinine Clearance 105.15 ml/min; Globulin 4.6 g/dL (2.2-4.2); Glucose 115 mg/dL (74-106); Potassium 2.7 mmol/L (3.5-5.1); Sodium Level 133 mmol/L (136-145)
[2024-08-03] MEDS: Potassium Chloride Oral Tablet 20 MEQ 40 MEQ PO (18:59)
[2024-08-03 19:00] VITALS: BP 114/71; PULSE 104; RESP 20; TEMP 37; O2SAT 96
[2024-08-03 19:12] LABS: Color, Urine Yellow (Yellow); Glucose, Dipstick Normal (Normal); Ketone-Dipstick Negative (Negative); Leukocyte Esterase-Dipstick 25 /ul (Negative); Nitrite-Dipstick Negative (Negative); Occult Blood-Urine 250 /ul (Negative); Protein-Dipstick 30 mg/dl (Negative); Urine Bilirubin Dipstick 3 mg/dL (Negative); Urine Clarity Clear (Clear); Urine Urobilinogen 4 mg/dl (Normal)
[2024-08-03 19:26] LABS: Bacteria RARE /hpf (None Seen); Mucous, Urine 1+ /hpf (<or=2+); Red Blood Cells-Urine 5-10 SEEN /hpf (0-5); Squamous Epithelial Cells - UA 0-5 SEEN /hpf (5-10); Transitional Epithelial - Ur 0-5 SEEN /hpf (0-5); White Blood Cells 0-5 SEEN /hpf (0-5)
[2024-08-03 19:32] VITALS: BP 112/65; PULSE 96; RESP 16; TEMP 36.9; O2SAT 98
== END 2024-08-03 19:33 | disposition home or self-care (01) ==
PROVIDERS: Nurse Practitioner; Emergency Provider Emergency Medicine; Visit Provider Emergency Medicine
DX: J10.1 Influenza due to other identified influenza virus with other respiratory manifestations (principal); E86.0 Dehydration; E87.6 Hypokalemia
CPT/HCPCS: 71046; 80053; 81001; 85025; 96361; 96374; 96375; 99284; A4216; J2405